=== PATIENT | male | born 1975 | race Caucasian/White ===

== ENCOUNTER → 2021-10-24 | Outpatient (CLI) | payer OTHER ==
--- NOTE | 2021-10-24 12:29 | RAD ---
KNEE 3 VIEWS LEFT Clinical Indication: Reason: KNEE PAIN AFTER TWISTING, HURTS TO PUT WEIGHT ON AND BEND Comparison: None. Findings: There is no acute fracture or dislocation. The tricompartmental joint spaces are maintained. The wright lla is in anatomic position. There are tiny patellar osteophytes. There is a tiny patellar enthesophy te. There is no soft tissue abnormality. There is no joint effusion. IMPRESSION: No acute fracture. Electronically signed by: Deejay Khoury MD (10/24/2021 12:27 PM) [id number]
== END ==
LOC: RAD 11:50
PROVIDERS: ATTEND Nurse Practitioner
DX: M25.562 Pain in left knee (principal)
CPT/HCPCS: 73562